=== PATIENT | female | born 1970 | race Caucasian/White ===

== ENCOUNTER 2017-06-10 11:50 | Emergency (ER) | payer SELFPAY ==
[2017-06-10 12:01] VITALS: BP 120/72
--- NOTE | 2017-06-10 12:17 | ED Physician Documentation ---
Sore Throat/Dental Pain - HISTORIAN Historian: patient - HPI Stated Complaint: Dental pain Chief Complaint: Dental Pain Additional Information: lt lower tooth no 19 broken koff at gumline appears septic w/surrounding erythema Onset: days ago (3) Context: Fractured Tooth Associated Symptoms: fever, moderate Worsened By: heat, cold Further Comments: yes (general dentition quite good) - ROS CONST: no problems CVS/RESP: none NEURO/PSYCH: none - PAST HX Past History: none Allergies/Adverse Reactions: Allergies Allergy/AdvReac Type Severity Reaction Status Date / Time aspirin Allergy Intermediate Rash Verified 06/10/17 12:01 Penicillins Allergy Intermediate Rash Verified 06/10/17 12:01 Home Medications: Ambulatory Orders Medication Instructions Recorded NK [NK] 12/23/13 - SOCIAL HX Smoking History: less than 1 pack/day Alcohol Use: none - FAMILY HX Family History: No - VITAL SIGNS Vital Signs: Vital Signs Temp Pulse Resp BP Pulse Ox 98.1 F 78 16 120/72 98 06/10/17 11:58 06/10/17 11:58 06/10/17 11:58 06/10/17 11:58 06/10/17 11:58 - REVIEWED ASSESSMENTS Nursing Assessment Reviewed: Yes Vitals Reviewed: Yes Dental Pain Physical Exam - EXAM General Appearance: mild distress Head/Neck: head nml inspection Eyes: eyes nml inspection Mouth/Throat: lips nml, pharynx nml, voice nml Ear/Nose: nml inspection Respiratory: no resp. distress, breath sounds nml. No: respiratory distress CVS: reg. rate & rhythm, heart sounds nml Abdomen: soft, non-tender Extremities: non-tender Skin: warm/dry, normal color. No: cyanosis, diaphoresis, jaundice Neuro/Psych: No: weakness, numbness, anxiety Discharge Clincal Impression: dental fracture/sepsis Referrals: Primary Doctor,No [Primary Care Provider] - 2 Days Home Medications: Ambulatory Orders NK [NK] 12/23/13 Comments: will contact dentist soon Condition: Good Disposition: 01 HOME, SELF-CARE Decision to Admit: NO Decision Time: 12:20
== END 2017-06-10 12:19 | disposition home or self-care (01) ==
LOC: ED 11:50
DX: S02.5XXA Fracture of tooth (traumatic), initial encounter for closed fracture (principal); X58.XXXA Exposure to other specified factors, initial encounter; Y93.9 Activity, unspecified; Y99.9 Unspecified external cause status; A41.9 Sepsis, unspecified organism
CPT/HCPCS: 99283

== ENCOUNTER 2017-09-15 08:27 | Emergency (ER) | payer SELFPAY ==
[2017-09-15 08:46] VITALS: BP 101/71
[2017-09-15] MEDS: ONDANSETRON HCL/PF 4 MG/ 2ML VIAL IM ONE (08:59)
[2017-09-15] MEDS: NALBUPHINE HCL 10 MG/1 ML IM ONE (09:03)
[2017-09-15] MEDS: IBUPROFEN 400 MG TABLET PO ONE (09:05)
--- NOTE | 2017-09-15 09:44 | Diagnostic Imaging Report ---
CECILIA MENSAH [facility] [address] [facility] [address] [place], [place]. [address] Report Submission Date: Sep 15, 2017 9:25:22 AM BOOM MAN Patient Study Name: EUGENE JIMENEZ Date: Sep 15, 2017 8:55:30 AM BOOM MAN Modality Type: CT\SR Gender: F Description: CT BRAIN W/O CONTRAST : 74 Institution: [facility] Physician: CECILIA MENSAH Head CT without contrast CLINICAL HISTORY: Headache for 1 week. TECHNIQUE: CT examination of brain is performed in contiguous axial slices without the use of contrast. Sagittal and coronal reconstructions are performed by the technologist. FINDINGS: The 4th ventricle lies in a normal midline position. The ventricles and sulci are within normal limits. There is no hypodense or hyperdense mass or intracranial hemorrhage. Visualized paranasal sinuses and the mastoid air cells are clear. IMPRESSION: Negative noncontrast head CT. Electronically signed on Sep 15, 2017 9:25:22 AM BOOM MAN by: Travis SHEEHAN
--- NOTE | 2017-09-15 09:46 | ED Physician Documentation ---
Headache - HISTORIAN Historian: patient - HPI Stated Complaint: Headache Chief Complaint: Headache Additional Information: headache began yesterday has had 3-4 episodes past few weeks starts w/ h/a progressees to dental pain-. pt takes ibu which helps also has dec vision and likes dark room, headache is throbbing bitemporal and goes to post upper dentures. has not had the headaches prior leela few weeks ago. she thinks may be dental in origin due to bad post teeth=-upper. this is first medical encounter. Onset: days ago (yesterday worsetoday--ibu has not helped much today) Timing: gradual, still present, worse New Gradual Onset: Yes Severity: moderate, severe Quality: similar to previous (only worse this time-=-07/17) Associated Symptoms: problems with vision, sensitivity to light, nausea, neck pain, stiffness, speech problems, dizziness, light-headedness. denies: fever, chills, sweating, vomiting, trouble walking, numbness Preceding Symptoms: visual disturbance Exacerbated By: light, noise - ROS NEURO/PSYCH: anxiety. denies: confusion, depression, fainting EYES/ENT: denies: sore throat, difficulty swallowing, sinus pain, drainage CVS/RESP: none GI/: denies: abdominal pain, diarrhea MS/SKIN/LYMPH: swollen glands (sub mental). denies: muscle aches, back pain, rash, skin lesions - PAST HX Medical History: no pertinent history (except these recent onset headaches) Surgical History: other (btl) Allergies/Adverse Reactions: Allergies Allergy/AdvReac Type Severity Reaction Status Date / Time aspirin Allergy Intermediate Rash Verified 09/15/17 08:47 Penicillins Allergy Intermediate Rash Verified 09/15/17 08:47 Home Medications: Ambulatory Orders Medication Instructions Recorded NK [NK] 12/23/13 - SOCIAL HX Smoking History: less than 1 pack/day Alcohol Use: none Drug Use: none - Family HX Family History: none - VITAL SIGNS Vital Signs: Vital Signs Temp Pulse Resp BP Pulse Ox 97.7 F 84 16 101/71 96 09/15/17 09:37 09/15/17 09:37 09/15/17 09:37 09/15/17 09:37 09/15/17 09:37 - REVIEWED ASSESSMENTS Nursing Assessment Reviewed: Yes Vitals Reviewed: Yes ED Results Lab/Radiology - Radiology Radiology Impressions: rad reports ct as normal--copy given to patient - Orders Orders: ED Orders Category Date Time Status CT BRAIN W/O CONTRAST Stat Exams 09/15/17 08:49 Ordered Ibuprofen [Advil] Med 09/15/17 09:02 Discontinued 800 mg PO NOW ONE Nalbuphine HCl [Nubain] Med 09/15/17 08:48 Discontinued 10 mg IM NOW ONE Ondansetron HCl/Pf [Zofran 4 mg/2 ml] Med 09/15/17 08:48 Discontinued 4 mg IM NOW ONE Headache Physical Exam - EXAM General Appearance: moderate distress, anxious. No: lethargic, hyperventilating EENT: no facial swelling, eyes nml inspection, photophobia, pharynx nml, other ( submandibular bilateral lymphadenopathy). No: tender temporal artery, pain over sinuses, purulent nasal discharge, abnml TM, pharyngeal erythema, tonsillar exudate Neck: lymphadenopathy. No: stiff neck Respiratory: no resp distress, chest non-tender, breath sounds normal CVS: reg. rate & rhythm, heart sounds nml Abdomen: non-tender Skin: color nml, no rash. No: cyanosis, diaphoresis, pallor Extremitites: non-tender, normal range of motion, no evidence of injury - NEURO/PSYCH Higher Functions: alert, oriented x3 Cranial: nml as tested Sensorimotor: motor nml, sensation nml. denies: weakness, aphasia Discharge Clincal Impression: atypical migraine cephalgia, multiple dantal caries Referrals: Primary Doctor,No [Primary Care Provider] - 2 Days Comments: pt states she will see dentist very soon-perhaps neurologist if dental repair does not relieve the headaches. she also states she can take amoxicillin w/o difficulty=-its only pcn that gives her problems Disposition: HOME, SELF-CARE Decision to Admit: NO Decision Time: 09:54
== END 2017-09-15 09:37 | disposition home or self-care (01) ==
LOC: ED 08:27
DX: G43.909 Migraine, unspecified, not intractable, without status migrainosus (principal); K02.9 Dental caries, unspecified
CPT/HCPCS: 70450; 99282; 99283

== ENCOUNTER 2017-11-27 09:56 | Emergency (ER) | payer SELFPAY ==
--- NOTE | 2017-11-27 10:30 | ED Physician Documentation ---
Lower Extremity Injury - HISTORIAN Historian: patient - HPI Chief Complaint: Lower Extremity Injury Onset: days ago (yesterday) Where: home Severity: moderate Context: fall Associated Symptoms:: swelling. denies: snapping sensation, popping sensation - ROS CONST: no problems. denies: fever, chills CVS/RESP: denies: shortness of breath, cough MS/SKIN/LYMPH: denies: neck pain, back pain, foot swelling, ankle swelling NEURO: denies: headache, head injury - PAST HX Past History: none Allergies/Adverse Reactions: Allergies Allergy/AdvReac Type Severity Reaction Status Date / Time aspirin Allergy Intermediate Rash Verified 11/27/17 10:26 Penicillins Allergy Intermediate Rash Verified 11/27/17 10:26 Home Medications: Ambulatory Orders Medication Instructions Recorded Tramadol HCl [Ultram] 50 mg PO Q4 PRN #30 tablet 11/27/17 - SOCIAL HX Smoking History: less than 1 pack/day (1/2 ppd) Alcohol Use: none Drug Use: none - FAMILY HX Family History: no significant history, other (father aneurysm) - VITAL SIGNS Vital Signs: Vital Signs Temp Pulse Resp BP Pulse Ox 78 16 118/74 98 11/27/17 12:49 11/27/17 12:49 11/27/17 12:49 11/27/17 09:56 - REVIEWED ASSESSMENTS Nursing Assessment Reviewed: Yes ED Results Lab/Radiology - Radiology Radiology Impressions: Examination: Plain film right knee History: PAIN AFTER FALL ONTO RIGHT KNEE WHILE GETTING IN TO TRACTOR YESTERDAY ( Hx) Findings: 3 views of the right knee demonstrates normal cortical margins. No fracture. No dislocation. Suprapatellar joint effusion. No soft tissue irregularity. Impression: Suprapatellar joint effusion. No acute osseous abnormality - Orders Orders: ED Orders Category Date Time Status Knee Immobilizer 1T Care 11/27/17 11:33 Active KNEE 3 VIEWS [RAD] Stat Exams 11/27/17 Completed Ketorolac Tromethamine [Toradol] Med 11/27/17 10:30 Discontinued 60 mg IM NOW ONE Lower Extremities Injury Phy - Physical Exam General Appearance: alert Hips: bilateral hip: non-tender, normal inspection, normal range of motion, no evidence of injury Legs: left: non-tender, normal inspection, normal range of motion, no evidence of injury Knees: right: joint effusion (suprapatellar and inferior to meidal joint line), pain, soft tissue tenderness (along medial collateral ligament), left: non- tender, normal inspection, normal range of motion, no evidence of injury, N/A: deformity (none), ecchymosis (none) Ankle: bilateral: non-tender, normal inspection, normal range of motion, no evidence of injury Ligaments: pain on medial stress. No: pain on anterior drawer, laxity on anterior drawer, pain on posterior drawer, laxity on posterior drawe, laxity on medial stress, pain on lateral stress, laxity on lateral stress Gait: normal Neuro/Vascular/Tendon: no vascular compromise, motor nml, sensation nml Neck/Back: nml inspection, non-tender Resp/CVS: chest non-tender, breath sounds nml, heart sounds nml, no resp. distress, lungs clear, reg. rate & rhythm Discharge Clincal Impression: Medial collateral ligament sprain of knee Prescriptions: Tramadol HCl [Ultram] 50 mg PO Q4 PRN #30 tablet PRN Reason: Pain Referrals: Primary Doctor,No [Primary Care Provider] - 2 Days Additional Instructions: Take Ibuprofen 200mg tablets, 3-4 tablets every 8 hours with food as needed for pain; or Aleve 220mg tablets, 2 tablets twice a day with food as needed for pain. May take tramadol 50mg for breakthrough pain. Wear straight knee immobilizer for the next 4-5 days. Do exercises as instructed. If you continue to have problems and pain to see your primary care provider or return to the ED. Condition: Stable Disposition: 01 HOME, SELF-CARE Decision to Admit: NO Date of Decison to Admit: 11/27/17 Decision Time: 11:28
[2017-11-27] MEDS: KETOROLAC TROMETHAMINE 60 MG/2 ML VIAL IM ONE (10:38)
--- NOTE | 2017-11-27 11:21 | Diagnostic Imaging Report ---
JAGRUTI MCHUGH [facility] [address] [facility] [address] [address] Report Submission Date: Nov 27, 2017 11:20:17 AM STUDIO ARTIST Patient Study Name: EUGENE JIMENEZ Date: Nov 27, 2017 11:04:17 AM STUDIO ARTIST Modality Type: DX Gender: F Description: LOWER EXTREMITY : 74 Institution: [facility] Physician: JAGRUTI MCHUGH Examination: Plain film right knee History: PAIN AFTER FALL ONTO RIGHT KNEE WHILE GETTING IN TO TRACTOR YESTERDAY ( Hx) Findings: 3 views of the right knee demonstrates normal cortical margins. No fracture. No dislocation. Suprapatellar joint effusion. No soft tissue irregularity. Impression: Suprapatellar joint effusion. No acute osseous abnormality Electronically signed on Nov 27, 2017 11:20:17 AM STUDIO ARTIST by: Magdy SHEEHAN
[2017-11-27 12:50] VITALS: BP 118/74
== END 2017-11-27 11:50 | disposition home or self-care (01) ==
LOC: ED 09:56
DX: S83.411A Sprain of medial collateral ligament of right knee, initial encounter (principal); W17.89XA Other fall from one level to another, initial encounter; Y93.89 Activity, other specified; Y92.79 Other farm location as the place of occurrence of the external cause; Y99.9 Unspecified external cause status
CPT/HCPCS: 73562; J1885; 96372; 99283

== ENCOUNTER 2017-12-22 14:50 | Emergency (ER) | payer SELFPAY ==
--- NOTE | 2017-12-22 15:00 | ED Physician Documentation ---
Sore Throat/Dental Pain - HISTORIAN Historian: patient - HPI Stated Complaint: Dental Pain Chief Complaint: Dental Pain Onset: days ago (1) Context: Dental Caries, Possible Infection. denies: Foreign Body, Fractured Tooth, Abscess Associated Symptoms: mild. denies: fever, chills, sore throat, unable to swallow, R ear pain, L ear pain, cough Worsened By: denies: nothing Further Comments: yes (She states she feels the eating of ice is what made the pain start yesterday . She has tried Ibuprofen. She notes some swelling. No fever. No broken tooth. She does not have a dentist) - ROS CONST: no problems - PAST HX Past History: none Other History: none Immunizations: UTD Allergies/Adverse Reactions: Allergies Allergy/AdvReac Type Severity Reaction Status Date / Time aspirin Allergy Intermediate Rash Verified 12/22/17 14:57 Penicillins Allergy Intermediate Rash Verified 12/22/17 14:57 Home Medications: Ambulatory Orders Medication Instructions Recorded NK [NK] 12/22/17 - SOCIAL HX Smoking History: cigarettes Alcohol Use: none Drug Use: none - FAMILY HX Family History: No - VITAL SIGNS Vital Signs: Vital Signs Temp Pulse Resp BP Pulse Ox 118/74 11/27/17 12:49 - REVIEWED ASSESSMENTS Nursing Assessment Reviewed: Yes Vitals Reviewed: Yes Dental Pain Physical Exam - EXAM General Appearance: no acute distress, alert Head/Neck: head nml inspection, other (cavity noticed on right upper back tooth with mild redness of gums ) Eyes: eyes nml inspection Mouth/Throat: lips nml Ear/Nose: nml inspection Respiratory: no resp. distress, breath sounds nml, respiratory distress CVS: reg. rate & rhythm, heart sounds nml Skin: warm/dry, normal color Neuro/Psych: No: weakness Discharge Clincal Impression: Pain, dental Referrals: Primary Doctor,No [Primary Care Provider] - 2 Days Additional Instructions: 1. Ibuprofen or Tylenol for pain 2. Warm salt water garlgles 3. Azithromycin as directed 4. Warm pack to the area 5. List of dentist given 6. Return to ER for any concerns Condition: Stable Disposition: 01 HOME, SELF-CARE Decision to Admit: NO Date of Decison to Admit: 12/22/17 Decision Time: 15:09
[2017-12-22 15:01] VITALS: BP 121/72
== END 2017-12-22 15:10 | disposition home or self-care (01) ==
LOC: ED 14:50
DX: K08.89 Other specified disorders of teeth and supporting structures (principal)
CPT/HCPCS: 99282

== ENCOUNTER 2018-04-19 06:16 | Emergency (ER) | payer SELFPAY ==
[2018-04-19 06:31] VITALS: BP 127/79
--- NOTE | 2018-04-19 06:58 | ED Physician Documentation ---
Sore Throat/Dental Pain - HISTORIAN Historian: patient - HPI Stated Complaint: DENTAL PAIN Chief Complaint: General Adult Additional Information: Dental pain for 3-4 days. Points to #5. Thinks filling fell out. Has dental insurance in 2 weeks. - ROS CONST: no problems - PAST HX Past History: none Allergies/Adverse Reactions: Allergies Allergy/AdvReac Type Severity Reaction Status Date / Time aspirin Allergy Intermediate Rash Verified 04/19/18 06:31 Penicillins Allergy Intermediate Rash Verified 04/19/18 06:31 Home Medications: Ambulatory Orders Medication Instructions Recorded Acetaminophen with Codeine 1 each PO Q4H PRN #15 tablet 04/19/18 [Tylenol with Codeine #3 Tablet] Amoxicillin 500 mg PO Q8H #30 capsule 04/19/18 - SOCIAL HX Smoking History: cigarettes (2 PPD x 37 years. Last 4 months, 3-4 cig's per day) - FAMILY HX Family History: No - VITAL SIGNS Vital Signs: Vital Signs Temp Pulse Resp BP Pulse Ox 97.8 F 89 18 127/79 98 04/19/18 06:16 04/19/18 06:16 04/19/18 06:16 04/19/18 06:16 04/19/18 06:16 - REVIEWED ASSESSMENTS Nursing Assessment Reviewed: Yes Vitals Reviewed: Yes Dental Pain Physical Exam - EXAM General Appearance: no acute distress, alert Head/Neck: head nml inspection, trachea midline, other (#5 with large area of decay). No: neck mass/swelling Eyes: eyes nml inspection Mouth/Throat: lips nml, pharynx nml, voice nml, no drooling, no air way problems , gum swelling around teeth (mild), widespread dental decay Ear/Nose: nml inspection Respiratory: no resp. distress Extremities: nml ROM (gait and stance) Skin: warm/dry, normal color Neuro/Psych: none Discharge Clincal Impression: Dentalgia Prescriptions: Acetaminophen with Codeine [Tylenol with Codeine #3 Tablet] 1 each PO Q4H PRN # 15 tablet PRN Reason: Pain Amoxicillin 500 mg PO Q8H #30 capsule Referrals: Primary Doctor,No [Primary Care Provider] - 2 Days Condition: Good Disposition: 01 HOME, SELF-CARE Decision to Admit: NO Decision Time: 06:55
== END 2018-04-19 06:56 | disposition home or self-care (01) ==
LOC: ED 06:16
DX: K02.9 Dental caries, unspecified (principal)
CPT/HCPCS: 99282

== ENCOUNTER 2019-02-26 17:22 | Emergency (ER) | payer SELFPAY ==
[2019-02-26 17:43] LABS: BASOPHILS % 0.6 % (0.0-1.5); EOSINOPHILS % 2.5 % (0.0-6.8); MEAN CORPUSCULAR HEMOGLOBIN 24.8 pg (28.0-34.0); MONOCYTES % 6.9 % (0.0-11.0); NEUTROPHILS # 13.7 # k/uL (1.4-7.7)
[2019-02-26 17:47] LABS: eGFR (Non-African) > 60
[2019-02-26] MEDS: IPRATROPIUM/ALBUTEROL SULFATE 3 ML AMPUL.NEB NEB STA (17:55)
[2019-02-26] MEDS: 0.9 % SODIUM CHLORIDE 1,000 ML IV ONE (18:00)
[2019-02-26] MEDS: IPRATROPIUM/ALBUTEROL SULFATE 3 ML AMPUL.NEB NEB ONE (18:13)
[2019-02-26] MEDS ORDERED: ALBUTEROL SULFATE 2.5 MG/3 ML AMPUL.NEB NEB ONE (19:31)
--- NOTE | 2019-02-26 19:45 | ED Physician Documentation ---
Dyspnea - HISTORIAN Historian: patient - HPI Stated Complaint: chest pain Chief Complaint: Wheezing Onset: days ago Duration: worse Initiating Event: upper respiratory illness Severity: moderate Exacerbated By: coughing Associated Symptoms: chills, fever Further Comments: yes (48 year old female patient presents with complaints of cough, wheezing, short of breath with exerction and chest soreness. Patient states symptoms became worse yesterday and this morning. Reports "wheezing". RA Sat 87-88% on arrival.) - ROS CONST: no problems EYES/ENT: none GI/: denies: abdominal pain, problems urinating, nausea, diarrhea NEURO/PSYCH: denies: headache MS/SKIN/LYMPH: none - PAST HX Lung Disease: none Allergies/Adverse Reactions: Allergies Allergy/AdvReac Type Severity Reaction Status Date / Time aspirin Allergy Intermediate Rash Verified 02/26/19 17:44 Penicillins Allergy Intermediate Rash Verified 02/26/19 17:44 Home Medications: Ambulatory Orders Medication Instructions Recorded Levofloxacin [Levaquin] 750 mg PO DAILY #6 tablet 02/26/19 - SOCIAL HX Smoking History: cigarettes - FAMILY HX Family History: denies: none - VITAL SIGNS Vital Signs: Vital Signs Temp Pulse Resp BP Pulse Ox 115 H 22 137/66 93 02/26/19 17:34 02/26/19 17:22 02/26/19 17:22 02/26/19 17:35 - REVIEWED ASSESSMENTS Nursing Assessment Reviewed: Yes Vitals Reviewed: Yes Progress - Progress Progress: Chest xray negative. Will progress with CT PE protocol. BBS improved after nebulizer treatment. Levaquin given in ER. Reviewed discharge instructions; patient states she feels much better. Discharged with proair neb and Robitussin AC. ED Results Lab/Radiology - Lab Results Lab Results: Lab Results 02/26/19 02/26/19 02/26/19 17:30 17:30 17:30 WBC RBC Hgb Hct MCV MCH MCHC RDW Plt Count Neut % (Auto) Lymph % (Auto) [place] % (Auto) Eos % (Auto) Baso % (Auto) Neut # (Auto) Lymph # (Auto) [place] # (Auto) Eos # (Auto) Baso # (Auto) Sodium 134 mmol/L L mmol/L (137-145) Potassium 3.5 mmol/L mmol/L (3.5-5.1) Chloride 105 mmol/L mmol/L (98-107) Carbon Dioxide 19 mmol/L L mmol/L (22-30) BUN 5 mg/dL L mg/dL (7-17) Creatinine 0.58 mg/dL mg/dL (0.52-1.04) Estimated Creat Clear 188 Est GFR ( Amer) > 60 (60 - ) Est GFR (Non-Af Amer) > 60 (60 - ) Glucose 143 mg/dL H mg/dL (74-106) Lactate 2.0 U/L U/L (0.7-2.1) Calcium 8.4 mg/dL mg/dL (8.4-10.2) Total Bilirubin 0.2 mg/dL mg/dL (0.2-1.3) AST 21 U/L U/L (15-46) ALT 15 U/L U/L (0-35) Alkaline Phosphatase 83 U/L U/L (38-126) Troponin I < 0.012 ng/mL L ng/mL (0.012-0.034) Total Protein 7.1 g/dL g/dL (6.3-8.2) Albumin 3.9 g/dL g/dL (3.5-5.0) 02/26/19 17:30 WBC 17.40 K/ul H K/ul (4.00-12.00) RBC 4.82 M/ul M/ul (3.90-5.20) Hgb 12.0 g/dL g/dL (11.5-16.0) Hct 36.1 % % (34.5-46.5) MCV 75.0 fl L fl (80.0-100.0) MCH 24.8 pg L pg (28.0-34.0) MCHC 33.1 g/dL g/dL (30.0-36.0) RDW 17.6 % H % (11.3-14.3) Plt Count 421 K/mm3 H K/mm3 (130-400) Neut % (Auto) 78.7 % % (39.0-79.0) Lymph % (Auto) 11.3 % L % (16.0-50.0) [place] % (Auto) 6.9 % % (0.0-11.0) Eos % (Auto) 2.5 % % (0.0-6.8) Baso % (Auto) 0.6 % % (0.0-1.5) Neut # (Auto) 13.7 # k/uL H # k/uL (1.4-7.7) Lymph # (Auto) 2.0 # k/uL # k/uL (0.6-4.0) [place] # (Auto) 1.2 # k/uL H # k/uL (0.0-0.9) Eos # (Auto) 0.4 # k/uL # k/uL (0.0-0.6) Baso # (Auto) 0.1 # k/uL # k/uL (0.0-0.5) Sodium Potassium Chloride Carbon Dioxide BUN Creatinine Estimated Creat Clear Est GFR ( Amer) Est GFR (Non-Af Amer) Glucose Lactate Calcium Total Bilirubin AST ALT Alkaline Phosphatase Troponin I Total Protein Albumin - Radiology Radiology Impressions: Chest, PA and lateral HISTORY Chest pain, cough FINDINGS No infiltrate, effusion or pneumothorax is present. Heart size, mediastinum and pulmonary vascularity are normal. IMPRESSION No active pulmonary disease. Electronically signed on February 26, 2019 5:51:54 PM CDT by: Willard Ortiz CT chest with intravenous contrast HISTORY Hypoxia, chest pain TECHNIQUE Images through the chest were obtained following intravenous contrast administration. FINDINGS Moderate left upper lobe infiltrate is present. Mild left lower lobe infiltrate is also present. There are minimal right lung infiltrates. There is no p neumothorax or pleural effusion. There is no pulmonary mass or nodule. There is a large hiatal hernia. The heart and mediastinum are normal. The aorta and pulmonary arteries enhance normally. There is no pulmonary embolus. Small mediastinal lymph nodes are present. IMPRESSION Bilateral lung infiltrates, worse in the left upper lobe. Large hiatal hernia. Electronically signed on February 26, 2019 6:50:49 PM CDT by: Willard Ortiz - Orders Orders: ED Orders Category Date Time Status Continuous EKG monitoring Q1H Care 02/26/19 17:34 Active Continuous Pulse Oximetry Q1H Care 02/26/19 17:[address] IV Lock 1T Care 02/26/19 17:33 Active CHEST 2VIEW [RAD] Stat Exams 02/26/[address] CHEST PE PROTOCOL [CT PE CHEST] Stat Exams 02/26/19 Taken BLOOD CULTURE Stat Lab 02/26/19 18:05 Received CBC/PLATELET/DIFF Stat Lab 02/26/19 17:30 Completed CMP [CMP] Stat Lab 02/26/19 17:30 Completed LACTATE Stat Lab 02/26/19 17:30 Completed TROPONIN I Stat Lab 02/26/19 17:30 Completed UA W/MICRO IF INDICATED Stat Lab 02/26/19 17:59 Ordered URINE HCG Stat Lab 02/26/19 18:10 Ordered 0.9 % Sodium Chloride [Normal Saline] 1,000 ml Med 02/26/19 17:59 Discontinued IV NOW Albuterol Sulfate [Ventolin Soln] Med 02/26/19 19:31 Discontinued 2.5 mg NEB NOW ONE Ipratropium/Albuterol Sulfate [Duoneb] Med 02/26/19 17:46 Discontinued 3 ml NEB .STK-MED ONE Ipratropium/Albuterol Sulfate [Duoneb] Med 02/26/19 17:48 Discontinued 3 ml NEB STAT STA levoFLOXacin IN DEXTROSE 5 % [Levaquin] Med 02/26/19 19:31 Discontinued 750 mg IV NOW ONE Oxygen Daily Oxygen 02/26/19 17:45 Ordered EKG WITH COMPARISON Stat Ther 02/26/19 Ordered Dyspnea Physical Exam - EXAM General Appearance: mild distress EENT: eye inspection normal, ENT inspection normal, pharynx normal, no signs of dehydration, NIKKI, no nystagmus, TM's nml Respiratory: no resp. distress, no pain on inspiration, speaks full sentences, wheezes, rales (posterior) CVS: no murmur, no gallop, no friction rub, pulses full, pulses equal, tachycardia Abdomen: non-tender, no organomegaly, no distention, no ascites Skin: color nml, no rash, warm, nml palp., dry Extremities: non-tender, normal range of motion, no evidence of injury, no edema, J, [employer] Neuro/Psych: oriented x3, CN's nml as tested, motor nml, sensation nml, mood/affect nml Discharge Clincal Impression: Bilateral lung infiltrates, Wheezing CAP (community acquired pneumonia) Qualifiers: Laterality: left Lung location: upper lobe of lung Qualified Code(s): J18.1 - Lobar pneumonia, unspecified organism Prescriptions: Levofloxacin [Levaquin] 750 mg PO DAILY #6 tablet Referrals: Primary Doctor,No [Primary Care Provider] - 2 Days Additional Instructions: gear hobber set up operator your prescription at the pharmacy in the morning. Cough drops as needed. You may want to try Vicks rub on your chest and/or feet Increase your fluid intake - at least 64 oz of water daily; this will help thin your secretions. Tylenol or Ibuprofen as needed for fever, pain and body aches. See your primary care doctor if your symptoms become worse or do not improve in the next 2-3 days. Condition: Stable Disposition: 01 HOME, SELF-CARE Decision to Admit: NO Decision Time: 20:14
[2019-02-26] MEDS: ALBUTEROL 90MCG/PUFF INHALER IH ONE (20:46)
[2019-02-26 20:51] VITALS: BP 107/64
--- NOTE | 2019-02-27 00:38 | Diagnostic Imaging Report ---
SABA PRESCOTT (TAILER OUT) - ER [facility] [address] [facility] [address] [place], [place]. [address] Report Submission Date: February 26, 2019 5:51:54 PM CDT Patient Study Name: EUGENE RIOS Date: February 26, 2019 5:32:00 PM CDT Modality Type: DX Gender: F Description: CHEST 2VIEW : 74 Institution: [facility] Physician: SABA PRESCOTT (TAILER OUT) - ER Chest, PA and lateral HISTORY Chest pain, cough FINDINGS No infiltrate, effusion or pneumothorax is present. Heart size, mediastinum and pulmonary vascularity are normal. IMPRESSION No active pulmonary disease. Electronically signed on February 26, 2019 5:51:54 PM CDT by: Willard SHEEHAN
--- NOTE | 2019-02-27 00:40 | Diagnostic Imaging Report ---
SABA PRESCOTT (GEOPHYSICAL PROSPECTING SURVEYOR) - ER [facility] [address] [facility]. [address] [place], [place]. [address] Report Submission Date: February 26, 2019 6:50:49 PM CDT Patient Study Name: EUGENE RIOS Date: February 26, 2019 6:21:14 PM CDT Modality Type: CT\SR Gender: F Description: CT PE CHEST : 74 Institution: [facility] Physician: SABA PRESCOTT (GEOPHYSICAL PROSPECTING SURVEYOR) - ER CT chest with intravenous contrast HISTORY Hypoxia, chest pain TECHNIQUE Images through the chest were obtained following intravenous contrast administration. FINDINGS Moderate left upper lobe infiltrate is present. Mild left lower lobe infiltrate is also present. There are minimal right lung infiltrates. There is no pneumothorax or pleural effusion. There is no pulmonary mass or nodule. There is a large hiatal hernia. The heart and mediastinum are normal. The aorta and pulmonary arteries enhance normally. There is no pulmonary embolus. Small mediastinal lymph nodes are present. IMPRESSION Bilateral lung infiltrates, worse in the left upper lobe. Large hiatal hernia. Electronically signed on February 26, 2019 6:50:49 PM CDT by: Willard SHEEHAN
[2019-02-27 12:53] LABS: APPEARANCE,URINE CLOUDY (CLEAR); COLOR,URINE AMBER (YELLOW); OCCULT BLOOD,URINE NEGATIVE (NEGATIVE); URINE HCG NEGATIVE (NEGATIVE); UROBILINOGEN URINE 0.2 Eu (0.2-1.0)
== END 2019-02-26 20:40 | disposition home or self-care (01) ==
LOC: ED 17:22
DX: J18.1 Lobar pneumonia, unspecified organism (principal); R91.8 Other nonspecific abnormal finding of lung field; R06.2 Wheezing; Z72.0 Tobacco use
CPT/HCPCS: 36415; 71046; 71275; 80053; 81002; 81025; 83605; 84484; 85025; 87040; 93005; 94640; 96374; 99284; 99285; J7030; Q9967; S1016

== ENCOUNTER 2019-07-23 19:14 | Emergency (ER) | payer SELFPAY ==
--- NOTE | 2019-07-23 19:18 | ED Physician Documentation ---
General Adult - HISTORIAN Historian: patient - HPI Stated Complaint: choked on a azeri fish Chief Complaint: General Adult Onset: hours (4) Timing: still present, worse since Further Comments: yes (She states she choked on a azeri fish and she feels it is still in her throat. She is able to swallow and she has tried to induce vomiting but states she still feels it there. She is able to talk and laugh) - ROS CONST: no problems - PAST HX Past History: none Allergies/Adverse Reactions: Allergies Allergy/AdvReac Type Severity Reaction Status Date / Time aspirin Allergy Intermediate Rash Verified 07/23/19 19:27 Penicillins Allergy Intermediate Rash Verified 07/23/19 19:27 - SOCIAL HX Smoking History: cigarettes Alcohol Use: none Drug Use: none - FAMILY HX Family History: No - VITAL SIGNS Vital Signs: Vital Signs Temp Pulse Resp BP Pulse Ox 107/64 02/26/19 20:49 - REVIEWED ASSESSMENTS Nursing Assessment Reviewed: Yes Vitals Reviewed: Yes General Adult Physical Exam - PHYSICAL EXAM GENERAL APPEARANCE: no distress EENT: eye inspection normal, ENT inspection normal, pharynx normal, no signs of dehydration NECK: normal inspection RESPIRATORY: no resp distress, chest non-tender, breath sounds normal CVS: reg rate & rhythm, heart sounds normal ABDOMEN: soft SKIN: warm/dry, normal color EXTREMITIES: non-tender, normal range of motion, no evidence of injury NEURO: oriented X3 Discharge Clincal Impression: Choked on food Referrals: Primary Doctor,No [Primary Care Provider] - 2 Days Comments: 1. Keep with warm fluids 2. If no improvement in am call PCP for possible GI referral 3. If not able to swallow secretions return to ER Condition: Stable Decision to Admit: NO Date of Decison to Admit: 07/23/19 Decision Time: 20:07
[2019-07-23 19:31] VITALS: BP 125/64
--- NOTE | 2019-07-25 16:48 | Diagnostic Imaging Report ---
MITALI HICKS [facility] [address] [facility] [address] [place], [place]. [address] Report Submission Date: Jul 23, 2019 7:58:26 PM CDT Patient Study Name: EUGENE RIOS Date: Jul 23, 2019 7:11:44 PM CDT Modality Type: DX Gender: F Description: SOFT TISSUE NECK : 74 Institution: [facility] Physician: MITALI HICKS Soft tissue neck, AP and lateral HISTORY Food bolus FINDINGS Airway is normal. There is no opaque retained foreign body. Prevertebral soft tissues are normal. IMPRESSION Normal. Electronically signed on Jul 23, 2019 7:58:26 PM CDT by: Willard SHEEHAN
== END 2019-07-23 20:09 | disposition home or self-care (01) ==
LOC: ED 19:14
DX: T17.228A Food in pharynx causing other injury, initial encounter (principal)
CPT/HCPCS: 70360; 99282; 99283